=== PATIENT | male | born 1955 | race Hispanic/Latino ===

== ENCOUNTER 2020-04-19 17:59 | Emergency (ER) | payer BC, OTHER ==
[~2020-04-19] VITALS: Ht 165.1 cm; Wt 71.7 kg
--- NOTE | 2020-04-19 18:09 | Emergency Department Note ---
History of Present Illnes History of Present Illness Chief Complaint: COVID PUI History of Present Illness This is a 65 year old male, with a history of hypertension and hyperlipidemia who presents with intermittent cough, fever, and body aches that started 8 days ago, with the onset of shortness of breath today. Patient states that he feels that "he can't get a full breath," and that started this morning. Patient was seen 3 days ago by his physician and started on prednisone, azithromycin, and hydroxychloroquine for treatment of possible COVID pneumonia. Patient was tested for Covid on 04/14/2020, and results are still pending. Patient states that he is having a persistent cough, sometimes productive of yellow sputum. He last had a fever 3 days ago, and his MAXIMUM TEMPERATURE was 103. He denies any chest pain or tightness. He has had an occasional loose stool. He has no known sick exposures, or known exposure to COVID 19. 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 Onset (how long ago): day(s) (8) Location: chest Quality: cough, SOB Radiation: Reports non-radiation Severity: moderate Duration (how long): week(s) (1) Timing of current episode: intermittent Progression: worsening (now, with SOB) Chronicity: new Context: Denies recent illness, Denies trauma/injury, Denies new medications, Denies non-compliance w/ medications Relieving factors: none Exacerbating factors: movement Associated symptoms: Reports cough, Reports fever/chills, Reports loss of appetite, Reports nausea/vomiting, Reports shortness of breath; Denies chest pain Treatments prior to arrival: other (Prednisone, Zithromax, Hydroxychloroquine) Risk factors: age, chronic disease Past Medical/Family History Physician Review I have reviewed the patient's past medical and family history. Any updates have been documented here. Past Medical History Recent Fever: Yes Clinical Suspicion of Infectio: Yes New/Unexplained Change in Ment: No Past Medical History: Hypertension, Hyperlipedemia Past Surgical History: None Social History Smoking Cessation: Never Smoker Any Illegal Drug Use: No TB Exposure/Symptoms: No Physically hurt or threatened: No Family History Family history of heart diseas: No Other Any Pre-Existing Lines (PICC,: No Is patient up to date on immun: No Review of Systems Review of Systems Constitutional: Reports chills, Reports fever, Reports malaise Cardiovascular: Denies chest pain, Denies palpitations Respiratory: Reports change in phlegm color (scant, yellow), Reports cough, Reports pain with cough, Reports dyspnea; Denies excessive phlegm production, Denies pain on inspiration, Denies dyspnea on exertion Gastrointestinal: Denies abdominal pain, Denies diarrhea, Denies nausea, Denies vomiting Genitourinary: Reports no symptoms Musculoskeletal: Reports muscle pain; Denies muscle stiffness, Denies neck pain Integumentary: Reports no symptoms Neurological: Reports no symptoms Psychological: Reports no symptoms Endocrine: Reports no symptoms Hematological/Lymphatic: Reports no symptoms Review of other systems: All other systems negative Physical Exam Related Data Allergies: Uncoded Allergies: NKDA (Allergy, Unknown, 06/25/09) Vital signs reviewed: Yes Physical Exam CONSTITUTIONAL Constitutional: Present well-developed, Present well-nourished; Absent distressed, Absent ill appearing HENT HENT: Present normocephalic, Present atraumatic, Present oropharynx clear/moist, Present nose normal HENT L/R: Present left ext ear normal, Present right ext ear normal EYES Eyes: Reports PERRL, Reports conjunctivae normal NECK Neck: Present ROM normal; Absent cervical adenopathy PULMONARY Pulmonary: Present effort normal, Present breath sounds normal CARDIOVASCULAR Cardiovascular: Present regular rhythm, Present heart sounds normal, Present capillary refill normal, Present normal rate GASTROINTESTINAL Abdominal: Present soft, Present nontender, Present bowel sounds normal GENITOURINARY Genitourinary: Present exam deferred SKIN Skin: Present warm, Present dry; Absent rash MUSCULOSKELETAL Musculoskeletal: Present ROM normal; Absent edema, Absent tenderness NEUROLOGICAL Neurological: Present alert, Present oriented x 3, Present no gross motor or sensory deficits, Present cranial nerve deficit PSYCHOLOGICAL Psychological: Present mood/affect normal, Present behavior normal Results Laboratory Laboratory CBC - normal; CMP - nl except for glucose = 216, Alkphos = 216; ALT = 112, AST = 93; Flu A/B - negative; Lab results reviewed: Yes Imaging Imaging results reviewed: Yes Impressions [place] [address] Patient Name: LEO IRVIN MR #: [id number] : 1955 Age/Sex: 65/M Req #: [id number] Adm Physician: Ordered by: HEAVEN CHEEMA MD Report #: [id number] Location: [facility] Room/Bed: Procedure: [id number] HOPD/CXR 1 VEW - HOPD Exam Date: 04/19/20 Exam Time: 1854 REPORT STATUS: Signed Examination: Single AP view of the chest. COMPARISON: None. INDICATION: Shortness of breath since today IMPRESSION: 1. Lines and Tubes: None 2. Lungs are well-inflated. Patchy airspace opacity in the left lower lung, which may represent developing pneumonia in the appropriate clinical setting. Right lung is grossly clear. 3. Cardiomediastinal silhouette is normal. Pulmonary vasculature is normal. 4. No acute bony abnormalities. Signed by: Dr. Yadira Dominguez M.D. on 04/19/2020 6:59 PM Dictated By: YADIRA DOMINGUEZ MD 58 Transcribed By: SHELLY on 04/19/201858 COPY TO: HEAVEN CHEEMA MD~ Assessment & Plan Medical Decision Making MDM Drink at least 1 GALLON of WATER per day (128 oz) for the next several days, until the kidney stone passes. Strain your urine with each void, in an effort to retrieve the stone, and take it with you to follow-up with Urology. Take medications, as prescribed. Return to the ED, if you develop vomiting with inability to keep medications down, high fever, or intractable abdominal pain. Contact Urology, Dr. Jaya Fernández, tomorrow, for a follow-up appointment this week, regarding the kidney stone and swollen left kidney. Take the stone with you, if you are able to retrieve it. Work on smoking cessation, and establish with a PCP, for management health issues, including uncontrolled hypertension, elevated blood counts(polycythemia) and elevated liver enzymes Labs and note faxed to Dr. Jaya Fernández. Assessment & Plan Final Impression: (1) Nephrolithiasis (2) Hydronephrosis of left kidney (3) Abdominal pain (4) Uncontrolled hypertension (5) Polycythemia (6) Elevated liver enzymes Depart Disposition: HOME, SELF-prison Meds Active Scripts Ketorolac Tromethamine (TORADOL) 10 Mg Tablet, 1 TAB PO Q6H PRN for pain for 5 Days, #20 TAB 0 Refills Do NOT take for more than 5 days. Prov:HEAVEN CHEEMA MD 04/19/20 Acetaminophen With Codeine (TYLENOL WITH CODEINE #3 TABLET) 1 Each Tablet, 1-2 TAB PO Q6H PRN for pain, #20 TAB 0 [address]ills DO NOT take and drive or operate machinery. Prov:HEAVEN CHEEMA MD 04/19/20 Tamsulosin Hcl* (FLOMAX*) 0.4 Mg Cap, 1 TAB PO DAILY for to help pass kidney stone, #30 CAP 0 Refills Prov:HEAVEN CHEEMA MD 04/19/20 Promethazine Hcl (PROMETHAZINE HCL) 25 Mg Tablet, 25 MG PO Q6H PRN for nause, #20 TAB 0 Refills Prov:HEAVEN CHEEMA MD 04/19/20 Ciprofloxacin Hcl (CIPRO) 500 Mg Tablet, 1 TAB PO BID for infection, #20 TAB 0 Refills Prov:HEAVEN CHEEMA MD 04/19/20 HEAVEN CHEEMA MD Apr 19, 2020 18:09
[2020-04-19] MEDS ORDERED: DEXAMETHASONE SOD PHOS 10 MG/1 ML VIAL IV ONE (18:45)
[2020-04-19] MEDS ORDERED: SODIUM CHLORIDE 0.9% 500ML 500 ML IV ONE (18:45)
[2020-04-19] MEDS ORDERED: AZITHROMYCIN 500MG/NS 250 ML 250 ML IV SCH (18:45)
--- NOTE | 2020-04-19 19:03 | Diagnostic Imaging Report ---
Examination: Single AP view of the chest. COMPARISON: None. INDICATION: Shortness of breath since today IMPRESSION: 1. Lines and Tubes: None 2. Lungs are well-inflated. Patchy airspace opacity in the left lower lung, which may represent developing pneumonia in the appropriate clinical setting. Right lung is grossly clear. 3. Cardiomediastinal silhouette is normal. Pulmonary vasculature is normal. 4. No acute bony abnormalities. Signed by: Dr. Ata Dominguez M.D. on 04/19/2020 6:59 PM
[2020-04-19] MEDS ORDERED: CEFTRIAXONE SOD 1 GM/NS 50 ML 50 ML IV ONE (19:15)
--- NOTE | 2020-04-19 19:17 | NUR ---
REPORT GIVEN TO CELE STRICKLAND,
[2020-04-19] MEDS ORDERED: DEXAMETHASONE SOD PHOS 10 MG/1 ML VIAL ONE (21:07)
[2020-04-19] MEDS ORDERED: AZITHROMYCIN 500MG/NS 250 ML 250 ML ONE (21:07)
[2020-04-19] MEDS ORDERED: SODIUM CHLORIDE 0.9% 500ML 500 ML ONE (21:07)
[2020-04-19] MEDS ORDERED: CEFTRIAXONE SOD 1 GM VIAL ONE (21:07)
[2020-04-19] MEDS ORDERED: CIPRO500 MG PO (21:28)
[2020-04-19] MEDS ORDERED: PROMETHAZINE HC25 M1 PO (21:30)
[2020-04-19] MEDS ORDERED: FLOMAX0.4 MG PO (21:33)
[2020-04-19] MEDS ORDERED: TYLENOL WITH C1 EACH PO (21:34)
[2020-04-19] MEDS ORDERED: KETOROLAC TROME10 MG PO (21:36)
--- NOTE | 2020-04-19 22:30 | Emergency Department Note ---
History of Present Illnes History of Present Illness Chief Complaint: COVID PUI History of Present Illness This is a 65 year old male, with a history of hypertension and hyperlipidemia, who presents with intermittent cough, fever, and body aches that started 8 days ago, with the onset of shortness of breath today. Patient states that he feels that "he can't get a full breath," and that this started this morning. Patient was seen 3 days ago by his PCP, and started on prednisone, azithromycin, and hydroxychloroquine for treatment of possible COVID pneumonia. Patient was tested for Covid 19 on 04/14/2020, and his results are still pending. Patient states that he is having a persistent cough, sometimes productive of yellow sputum. He last had fever 3 days ago, and his MAXIMUM TEMPERATURE was 103. He denies any chest pain or tightness. He has had an occasional loose stool. He has no known sick contacts, or known exposure to Covid 19. He lives at home with his . 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 Onset (how long ago): day(s) (8) Location: chest Quality: cough, SOB Radiation: Reports non-radiation Severity: moderate Duration (how long): week(s) (1) Timing of current episode: intermittent Progression: worsening (now, with SOB) Chronicity: new Context: Denies recent illness, Denies trauma/injury, Denies new medications, Denies non-compliance w/ medications Relieving factors: none Exacerbating factors: movement Associated symptoms: Reports cough, Reports fever/chills, Reports loss of appetite, Reports nausea/vomiting, Reports shortness of breath; Denies chest pain Treatments prior to arrival: other (Prednisone, Zithromax, Hydroxychloroquine) Risk factors: age, chronic disease Past Medical/Family History Physician Review I have reviewed the patient's past medical and family history. Any updates have been documented here. Past Medical History Recent Fever: Yes Clinical Suspicion of Infectio: Yes New/Unexplained Change in Ment: No Past Medical History: Hypertension, Hyperlipedemia Past Surgical History: None Social History Smoking Cessation: Never Smoker Counseling Performed: No Alcohol Use: None Any Illegal Drug Use: No TB Exposure/Symptoms: No Physically hurt or threatened: No Family History Family history of heart diseas: No Other Any Pre-Existing Lines (PICC,: No Is patient up to date on immun: No Review of Systems Review of Systems Constitutional: Reports chills, Reports fever, Reports malaise Cardiovascular: Denies chest pain, Denies palpitations Respiratory: Reports change in phlegm color (scant, yellow), Reports cough, Reports pain with cough, Reports dyspnea; Denies excessive phlegm production, Denies pain on inspiration, Denies dyspnea on exertion Gastrointestinal: Denies abdominal pain, Denies diarrhea, Denies nausea, Denies vomiting Genitourinary: Reports no symptoms Musculoskeletal: Reports muscle pain; Denies muscle stiffness, Denies neck pain Integumentary: Reports no symptoms Neurological: Reports no symptoms Psychological: Reports no symptoms Endocrine: Reports no symptoms Hematological/Lymphatic: Reports no symptoms Review of other systems: All other systems negative Physical Exam Related Data Allergies: Uncoded Allergies: NKDA (Allergy, Unknown, 06/25/09) Triage Vital Signs Vital Signs Date Time Temp Pulse Resp B/P (MAP) Pulse Ox O2 Delivery O2 Flow Rate FiO2 04/19/20 18:20 98.2 77 18 154/81 93 Room Air Vital signs reviewed: Yes Physical Exam CONSTITUTIONAL Constitutional: Present well-developed, Present well-nourished; Absent distressed, Absent ill appearing HENT HENT: Present normocephalic, Present atraumatic, Present oropharynx clear/moist, Present nose normal HENT L/R: Present left ext ear normal, Present right ext ear normal EYES Eyes: Reports PERRL, Reports conjunctivae normal NECK Neck: Present ROM normal; Absent cervical adenopathy PULMONARY Pulmonary: Present effort normal, Present breath sounds normal CARDIOVASCULAR Cardiovascular: Present regular rhythm, Present heart sounds normal, Present capillary refill normal, Present normal rate GASTROINTESTINAL Abdominal: Present soft, Present nontender, Present bowel sounds normal GENITOURINARY Genitourinary: Present exam deferred SKIN Skin: Present warm, Present dry; Absent rash MUSCULOSKELETAL Musculoskeletal: Present ROM normal; Absent edema, Absent tenderness NEUROLOGICAL Neurological: Present alert, Present oriented x 3, Present no gross motor or sensory deficits, Present cranial nerve deficit PSYCHOLOGICAL Psychological: Present mood/affect normal, Present behavior normal Results Laboratory Laboratory CBC - normal CMP - normal except for glucose = 216, alk phos = 216, AST = 93,ALT = 112; Flu A/B = Negative; Laboratory Tests Test 04/19/20 18:25 Lab results reviewed: Yes Imaging Imaging results reviewed: Yes Impressions [place] [address] Patient Name: LEO IRVIN MR #: [id number] : 1955 Age/Sex: 65/M Req #: [id number] Adm Physician: Ordered by: HEAVEN CHEEMA MD Report #: [id number] Location: [facility] Room/Bed: Procedure: [id number] HOPD/CXR 1 W - [facility] Exam Date: 04/19/20 Exam Time: 1854 REPORT STATUS: Signed Examination: Single AP view of the chest. COMPARISON: None. INDICATION: Shortness of breath since today IMPRESSION: 1. Lines and Tubes: None 2. Lungs are well-inflated. Patchy airspace opacity in the left lower lung, which may represent developing pneumonia in the appropriate clinical setting. Right lung is grossly clear. 3. Cardiomediastinal silhouette is normal. Pulmonary vasculature is normal. 4. No acute bony abnormalities. Signed by: Dr. Yadira Guzman M.D. on 04/19/2020 6:59 PM Dictated By: YADIRA GUZMAN MD 58 Transcribed By: SHELLY on 04/19/201858 COPY TO: HEAVEN CHEEMA MD~ Diagnostics Tests Diagnostic test(s) reviewed: Yes Assessment & Plan Medical Decision Making MDM Make sure that you are drinking PLENTY of water, at least 8 bottles/day, especially because your blood sugar was a bit elevated, due to the steroids. STOP the HYDROXYCHLOROQUINE STOP the PREDNISONE, AND BEGIN TAKING THE DEXAMETHASONE 6 MG ONCE DAILY. *(This can also increase your blood sugars) - Decrease your CARBOHYDRATE intake, including anything with sugar, breads, pasta, potatoes, and tortillas, as these can also increase your blood sugar. - Monitor your blood sugars twice daily (before breakfast and at bedtime) if you have a way to do so, and STOP the Dexamethasone, if you have 2 consecutive readings of 300, or greater. - If you can't monitor your blood sugars, stop the Dexamethasone, if you are urinating frequently, thirsty all of the time, or feel weak or dizzy. Complete the course of ZITHROMAX, that you were previously prescribed. Continue your Lisinopril and Atorvastatin. Return to the ED, if you develop shortness of breath at rest or upon exertion or severe chest pain. Assessment & Plan Final Impression: (1) Pneumonia due to COVID-19 virus (2) Left lower lobe pneumonia (3) Elevated blood sugar (4) Hypertension (5) Hyperlipidemia Depart Disposition: HOME, SELF-CARE Last Vital Signs Date Time Temp Pulse Resp B/P (MAP) Pulse Ox O2 Delivery O2 Flow Rate FiO2 04/19/20 18:20 98.2 77 18 154/81 93 Room Air Home Meds Active Scripts Albuterol Sulf* (PROAIR HFA INHALER*) 8.5 Gm Inh, 2 PUMP INH Q4HR PRN for cough and shortness of breath, #1 INH 0 Refills Prov:HEAVEN CHEEMA MD 04/19/20 Dexamethasone (DEXAMETHASONE) 4 Mg Tablet, 6 MG PO DAILY for inflammation of lungs for 5 Days, #5 TAB 0 Refills Prov:HEAVEN CHEEMA MD 04/19/20 Cefdinir (OMNICEF) 300 Mg Capsule, 300 MG PO BID for pneumonia for 10 Days, #20 CAP 0 Refills Prov:HEAVEN CHEEMA MD 04/19/20 Discontinued Scripts Ketorolac Tromethamine (TORADOL) 10 Mg Tablet, 1 TAB PO Q6H PRN for pain for 5 Days, #20 TAB 0 Refills Do NOT take for more than 5 days. Prov:HEAVEN CHEEMA MD 04/19/20 Acetaminophen With Codeine (TYLENOL WITH CODEINE #3 TABLET) 1 Each Tablet, 1-2 TAB PO Q6H PRN for pain, #20 TAB 0 Refills DO NOT take and drive or operate machinery. Prov:HEAVEN CHEEMA MD 04/19/20 Tamsulosin Hcl* (FLOMAX*) 0.4 Mg Cap, 1 TAB PO DAILY for to help pass kidney stone, #30 CAP 0 Refills Prov:HEAVEN CHEEMA MD 04/19/20 Promethazine Hcl (PROMETHAZINE HCL) 25 Mg Tablet, 25 MG PO Q6H PRN for nause, #20 TAB 0 Refills Prov:HEAVEN CHEEMA MD 04/19/20 Ciprofloxacin Hcl (CIPRO) 500 Mg Tablet, 1 TAB PO BID for infection, #20 TAB 0 Refills Prov:HEAVEN CHEEMA MD 04/19/20 Medications in the ED Sodium Chloride 500 ml @ 0 mls/hr Q0M ONCE IV Last administered on 04/19/20at 21:00; Admin Dose 500 MLS/HR; Start 04/19/20 at 18:45; Stop 04/19/20 at 18:46; Status DC Dexamethasone Sodium Phosphate 10 mg ONCE ONCE IV Last administered on 04/19/20at 21:00; Admin Dose 10 MG; Start 04/19/20 at 18:45; Stop 04/19/20 at 18:46; Status DC Azithromycin 250 ml @ 250 mls/hr Q24H IV Last administered on 04/19/20at 21:00; Admin Dose 250 MLS/HR; Start 04/19/20 at 18:45; Stop 04/26/20 at 18:44 Ceftriaxone Sodium 50 ml @ 100 mls/hr ONCE ONCE IV Last administered on 04/19/20at 21:00; Admin Dose 100 MLS/HR; Start 04/19/20 at 19:15; Stop 04/19/20 at 19:44; Status DC Dexamethasone Sodium Phosphate 10 mg STK-MED ONCE .ROUTE ; Start 04/19/20 at 21:07; Stop 04/19/20 at 21:03; Status DC Sodium Chloride 500 ml @ ud STK-MED ONCE .ROUTE ; Start 04/19/20 at 21:07; Stop 04/19/20 at 21:03; Status DC Azithromycin 250 ml @ ud STK-MED ONCE .ROUTE ; Start 04/19/20 at 21:07; Stop 04/19/20 at 21:03; Status DC Ceftriaxone Sodium 1 gm STK-MED ONCE .ROUTE ; Start 04/19/20 at 21:07; Stop 04/19/20 at 21:03; Status DC HEAVEN CHEEMA MD Apr 19, 2020 22:30
[2020-04-19] MEDS ORDERED: CEFDINIR300 MG PO (22:42)
[2020-04-19] MEDS ORDERED: DEXAMETHASONE4 MG PO (22:44)
[2020-04-19] MEDS ORDERED: PROAIR HFA INH8.5 GM INH (22:45)
== END 2020-04-19 23:10 | disposition home or self-care (01) ==
LOC: FSED 18:30
DX: U07.1 COVID-19 (principal); J18.9 Pneumonia, unspecified organism; R73.9 Hyperglycemia, unspecified; R06.02 Shortness of breath; R05 Cough; R11.2 Nausea with vomiting, unspecified; I10 Essential (primary) hypertension; E78.5 Hyperlipidemia, unspecified
CPT/HCPCS: 71045; 80053; 81003; 85025; 87040; 87400; 87635; 99284; J0456; J0696 ×2; J1100; J7040